=== PATIENT | male | born 1970 | race Hispanic/Latino ===

== ENCOUNTER 2018-06-27 23:14 | Emergency (ER) | payer BC ==
[2018-06-27 23:25] VITALS: BMI 26.5
[2018-06-28 00:02] VITALS: BP 158/91; PULSE 108; RESP 17; TEMP 98.7; O2SAT 100
--- NOTE | 2018-06-28 00:28 | ED PDOC ---
Arrival/HPI - General Chief Complaint: Alcohol Ingestion Time Seen by Provider: 06/27/18 23:32 Historian: Police EM Caveat: Intoxicated - History of Present Illness Narrative History of Present Illness (Text): 06/27/18 23:50 48 year old male, with no significant past medical history, presents to the emergency department by [facility] for public intoxication tonight. Patient admits to drinking alcohol tonight. HPI and ROS limited due to patient's state of intoxication. Patient screaming obscenities at staff and refusing full physical exam. Past Medical History - Provider Review Nursing Documentation Reviewed: Yes - Cardiac Hx Hypertension: Yes - Psychiatric Hx Depression: No Hx Emotional Abuse: No Hx Physical Abuse: No Hx Substance Use: No - Suicidal Assessment Feels Threatened In Home Enviroment: No Family/Social History - Physician Review Nursing Documentation Reviewed: Yes Family/Social History: No Known Family HX Smoking Status: Unknown If Ever Smoked Hx Alcohol Use: Yes Hx Substance Use: No Hx Substance Use Treatment: No Allergies/Home Meds Allergies/Adverse Reactions: Allergies No Known Allergies Allergy (Verified 12/24/12 18:51) Home Medications: Home Meds Medication Instructions Recorded Confirmed Unobtainable 06/28/18 06/28/18 Review of Systems - Physician Review All systems were reviewed & negative as marked: Yes - Review of Systems Systems not reviewed;Unavailable: Intoxicated Physical Exam Vital Signs Reviewed: Yes Vital Signs Temp Pulse Resp BP Pulse Ox 06/27/18 23:40 98.7 F 108 H 17 158/91 H 100 Temperature: Afebrile Blood Pressure: Hypertensive Pulse: Tachycardic Respiratory Rate: Normal Appearance: Positive for: Well-Appearing, Non-Toxic Pain Distress: None Mental Status: Positive for: other (Alert and intoxicated ) - Systems Exam Head: Present: Atraumatic, Normocephalic Pupils: Present: PERRL Extroacular Muscles: Present: EOMI Conjunctiva: Present: Normal Mouth: Present: Other (Alcohol on breath ) Neck: Present: Normal Range of Motion Respiratory/Chest: No: Respiratory Distress, Accessory Muscle Use Psychiatric: Present: Alert, Intoxicated Medical Decision Making ED Course and Treatment: 06/27/18 23:50 Impression: 48 year old male presents by [facility] for public intoxication. Plan: -- Glucose, POC -- Reassess and disposition Prior Visits: Notes and results from previous visits were reviewed. Progress Notes: 06/28/18 00:25 Patient's son arrived to ER to take patient home. Patient is awake and oriented x3. Patient's son is taking responsibility of patient and states he will take patient home. - Scribe Statement The provider has reviewed the documentation as recorded by the Debra Jaime Provider Scribe Attestation: All medical record entries made by the Milibethan were at my direction and personally dictated by me. I have reviewed the chart and agree that the record accurately reflects my personal performance of the history, physical exam, medical decision making, and the department course for this patient. I have also personally directed, reviewed, and agree with the discharge instructions and disposition. Disposition/Present on Arrival - Present on Arrival Any Indicators Present on Arrival: No History of DVT/PE: No History of Uncontrolled Diabetes: No Urinary Catheter: No History of Decub. Ulcer: No History Surgical Site Infection Following: None - Disposition Have Diagnosis and Disposition been Completed?: Yes Diagnosis: Alcohol intoxication Disposition: HOME/ ROUTINE Disposition Time: 00:26 Patient Plan: Discharge Condition: STABLE Discharge Instructions (ExitCare): Alcohol Abuse and Alcoholism (DC) Additional Instructions: Please contact your doctor or call one of the physicians/clinics you have been referred to that are listed on the Patient Visit Information form that is included in your discharge packet. Bring any paperwork you were given at discharge with you along with any medications you are taking to your follow up visit. Our treatment cannot replace ongoing medical care by a primary care provider outside of the emergency department. Thank you for allowing the [facility] team to be part of your care today. Referrals: Margie Beaulieu MD [Medical Doctor] - Follow up with primary [facility] [Outside] - Follow up with primary [facility] [place] - Follow up with primary Forms: [email or web address] ([place]ian)
== END 2018-06-28 00:30 | disposition home or self-care (01) ==
LOC: ED 23:14
DX: F10.129 Alcohol abuse with intoxication, unspecified (principal)